=== PATIENT | female | born 1965 | race Caucasian/White ===

== ENCOUNTER 2022-05-17 04:50 | Inpatient (IN) | payer SELFPAY ==
[~2022-05-17] VITALS: Ht 167.6 cm; Wt 63.5 kg
[~2022-05-17 04:50] MED LIST: CORDROL20 MG PO; MOTRIN800 MG PO; MULTIVITAMINS1 EAC5 PO; NAPROXEN500 MG PO; NKHM; OMEPRAZOLE40 MG PO; PERCOCET 325 MG1 TA2; PRILOSEC20 M1 PO; PRILOSEC40 MG PO; PROVERA10 MG PO; VITAMIN E400 UNI3 PO; ZITHROMAX250 MG PO
[2022-05-17 04:56] VITALS: BP 125/60
[2022-05-17 06:02] LABS: BASO % 0.3 % (0.0-1.0); EOS % 0.1 % (1.0-4.0); HEMATOCRIT 41.2 % (37.0-47.0); LYMPH # 1.3 10*3/uL (1.3-4.4); LYMPH % 17.1 % (27.0-41.0); MEAN CELL VOLUME 88.2 fl (81.0-99.0); MEAN PLATELET VOLUME 9.7 fl (9.6-12.3); MONO # 0.3 10*3/uL (0.1-1.0); MONO % 3.5 % (3.0-9.0); NEUT # 5.9 10*3/uL (2.3-7.9); NEUT % 78.7 % (47.0-73.0); PLATELET COUNT AUTOMATED 323 10*3/uL (130-400); RED BLOOD COUNT 4.67 10*6/uL (4.10-5.10); RED CELL DISTRI WIDTH 12.9 % (0-14.5); WHITE BLOOD COUNT 7.5 10*3/uL (4.8-10.8)
[2022-05-17 06:20] LABS: ALKALINE PHOSPHATASE 89 U/L (46-116); BUN < 5 mg/dl (9-23); CHLORIDE 103 mmol/L (98-107); POTASSIUM 3.6 mmol/L (3.4-5.1); SGPT/ALT 19 U/L (10-49); TOTAL PROTEIN 6.6 gm/dL (6.0-8.0)
[2022-05-17 10:02] VITALS: BP 127/63
== END 2022-05-17 14:07 | disposition home or self-care (01) | DRG 313 ==
LOC: ED 04:50 → EDHOLD 09:47 → 4E 10:33
PROVIDERS: Emergency Medicine; ADMIT Internal Medicine; ATTEND Internal Medicine
DX: R07.9 Chest pain, unspecified (principal); E87.1 Hypo-osmolality and hyponatremia; E44.1 Mild protein-calorie malnutrition; F17.210 Nicotine dependence, cigarettes, uncomplicated; R73.9 Hyperglycemia, unspecified; K21.9 Gastro-esophageal reflux disease without esophagitis; Z98.891 History of uterine scar from previous surgery; Z79.82 Long term (current) use of aspirin; Z79.899 Other long term (current) drug therapy; Z71.6 Tobacco abuse counseling; Z68.22 Body mass index [BMI] 22.0-22.9, adult

== ENCOUNTER 2022-05-31 11:37 | Inpatient (IN) | payer SELFPAY ==
[~2022-05-31] VITALS: Ht 154.9 cm; Wt 63.5 kg
[2022-05-31 11:52] VITALS: BP 126/73
[2022-05-31 12:19] LABS: BASO % 0.4 % (0.0-1.0); EOS % 0.4 % (1.0-4.0); HEMATOCRIT 41.1 % (37.0-47.0); LYMPH # 1.2 10*3/uL (1.3-4.4); LYMPH % 14.7 % (27.0-41.0); MEAN CELL VOLUME 90.9 fl (81.0-99.0); MEAN CORPUSCULAR HGB 30.5 pg (27.0-31.0); MEAN CORPUSCULAR HGB CONC 33.6 g/dl (33.0-37.0); MEAN PLATELET VOLUME 9.8 fl (9.6-12.3); MONO # 0.4 10*3/uL (0.1-1.0); MONO % 4.8 % (3.0-9.0); NEUT # 6.5 10*3/uL (2.3-7.9); NEUT % 79.5 % (47.0-73.0); PLATELET COUNT AUTOMATED 310 10*3/uL (130-400); RED BLOOD COUNT 4.52 10*6/uL (4.10-5.10); WHITE BLOOD COUNT 8.1 10*3/uL (4.8-10.8)
[2022-05-31 12:30] LABS: ACT PARTIAL THROMBO TIME 27.8 SECONDS (20.0-32.1)
[2022-05-31 12:38] LABS: ALKALINE PHOSPHATASE 84 U/L (46-116); BUN 6 mg/dl (9-23); CHLORIDE 102 mmol/L (98-107); LIPASE 33 U/L (12-53); POTASSIUM 3.1 mmol/L (3.4-5.1); SGPT/ALT 14 U/L (10-49); TOTAL PROTEIN 6.6 gm/dL (6.0-8.0)
[2022-05-31 14:00] VITALS: BP 113/42
[2022-05-31 15:00] VITALS: BP 140/82
[2022-05-31 20:30] VITALS: BP 108/71
[2022-06-01] VITALS: BP 112/54
[2022-06-01 06:57] LABS: BASO # 0.1 10*3/uL (0.0-0.1); BASO % 0.9 % (0.0-1.0); EOS # 0.1 10*3/uL (0.0-0.4); EOS % 1.4 % (1.0-4.0); HEMATOCRIT 43.1 % (37.0-47.0); LYMPH % 34.9 % (27.0-41.0); MEAN CELL VOLUME 92.7 fl (81.0-99.0); MEAN CORPUSCULAR HGB 29.5 pg (27.0-31.0); MEAN CORPUSCULAR HGB CONC 31.8 g/dl (33.0-37.0); MONO # 0.5 10*3/uL (0.1-1.0); MONO % 9.4 % (3.0-9.0); NEUT % 53.1 % (47.0-73.0); PLATELET COUNT AUTOMATED 309 10*3/uL (130-400); RED BLOOD COUNT 4.65 10*6/uL (4.10-5.10); RED CELL DISTRI WIDTH 13.2 % (0-14.5); WHITE BLOOD COUNT 5.7 10*3/uL (4.8-10.8)
[2022-06-01 07:09] LABS: BUN 8 mg/dl (9-23); CHLORIDE 107 mmol/L (98-107); CHOLESTEROL 213 mg/dL (<200); FREE T4 1.08 ng/dl (0.89-1.76); LDL CHOLESTEROL 135 mg/dL (9-159); THYROID STIM HORMONE (HS) 2.596 uIU/ml (0.550-4.780); TRIGLYCERIDES 143 mg/dl (<150)
[2022-06-01 08:00] VITALS: BP 108/66; BP 159/65
[2022-06-01 08:06] LABS: VITAMIN D, 25-HYDROXY 49.3 ng/mL (30-100)
[2022-06-01 12:00] VITALS: BP 117/82
[2022-06-01 16:00] VITALS: BP 107/67
[2022-06-01 20:00] VITALS: BP 119/65
[2022-06-02] VITALS: BP 108/62
[2022-06-02 08:00] VITALS: BP 129/77
[2022-06-02 12:00] VITALS: BP 117/82
[2022-06-02 16:00] VITALS: BP 135/75
[2022-06-02 20:00] VITALS: BP 119/60
[2022-06-03] VITALS: BP 108/51
[2022-06-03 06:27] LABS: BASO # 0.1 10*3/uL (0.0-0.1); BASO % 0.8 % (0.0-1.0); EOS # 0.1 10*3/uL (0.0-0.4); EOS % 1.2 % (1.0-4.0); HEMATOCRIT 45.9 % (37.0-47.0); LYMPH # 2.1 10*3/uL (1.3-4.4); LYMPH % 31.6 % (27.0-41.0); MEAN CORPUSCULAR HGB 29.5 pg (27.0-31.0); MONO # 0.7 10*3/uL (0.1-1.0); MONO % 10.3 % (3.0-9.0); NEUT # 3.7 10*3/uL (2.3-7.9); NEUT % 55.8 % (47.0-73.0); PLATELET COUNT AUTOMATED 316 10*3/uL (130-400); RED BLOOD COUNT 4.99 10*6/uL (4.10-5.10); RED CELL DISTRI WIDTH 13.1 % (0-14.5); WHITE BLOOD COUNT 6.6 10*3/uL (4.8-10.8)
[2022-06-03 07:12] LABS: BUN 9 mg/dl (9-23); CHLORIDE 100 mmol/L (98-107); POTASSIUM 3.4 mmol/L (3.4-5.1)
[2022-06-03 08:00] VITALS: BP 129/73
[2022-06-03 12:00] VITALS: BP 126/72
[2022-06-03] MEDS ORDERED: ATIVAN0.5 MG PO (15:08)
[2022-06-03 16:00] VITALS: BP 106/50; BP 130/69
== END 2022-06-03 16:50 | disposition home or self-care (01) | DRG 880 ==
LOC: ED 11:37 → EDHOLD 14:06 → 4E 14:06
PROVIDERS: Emergency Medicine; Student in an Organized Health Care Education/Training Program; ADMIT Internal Medicine; ATTEND Internal Medicine
PROC: 4A02XM4 Measurement of Cardiac Total Activity, External Approach (ICD-10-PCS; principal; 2022-06-03)
DX: F41.9 Anxiety disorder, unspecified (principal); E44.1 Mild protein-calorie malnutrition; K21.9 Gastro-esophageal reflux disease without esophagitis; E87.6 Hypokalemia; F17.210 Nicotine dependence, cigarettes, uncomplicated; E78.1 Pure hyperglyceridemia; R00.1 Bradycardia, unspecified; E78.5 Hyperlipidemia, unspecified; I07.1 Rheumatic tricuspid insufficiency; Z82.49 Family history of ischemic heart disease and other diseases of the circulatory system; Z71.6 Tobacco abuse counseling; Z98.891 History of uterine scar from previous surgery; Z68.26 Body mass index [BMI] 26.0-26.9, adult

== ENCOUNTER → 2023-05-22 | Outpatient (CLI) | payer OTHER ==
[~2023-05-22] MED LIST changes: +ATIVAN0.5 MG PO
== END | disposition home or self-care (01) ==
LOC: CT 09:58
PROVIDERS: ATTEND Physician Assistant
DX: J43.2 Centrilobular emphysema (principal); R91.8 Other nonspecific abnormal finding of lung field; F17.210 Nicotine dependence, cigarettes, uncomplicated

== ENCOUNTER 2024-08-27 07:47 | Emergency (ER) | payer SELFPAY ==
[~2024-08-27] VITALS: Ht 154.9 cm; Wt 61.7 kg
[2024-08-27] MEDS ORDERED: LEVOFLOXACIN750 M2 PO (10:50)
[2024-08-27] MEDS ORDERED: PREDNISONE20 M1 PO (10:50)
[2024-08-27] MEDS ORDERED: VENT7GM INH (11:12)
== END 2024-08-27 10:56 | disposition home or self-care (01) ==
LOC: ED 07:47
DX: J32.9 Chronic sinusitis, unspecified (principal); J40 Bronchitis, not specified as acute or chronic; F17.210 Nicotine dependence, cigarettes, uncomplicated; K21.9 Gastro-esophageal reflux disease without esophagitis; F41.9 Anxiety disorder, unspecified; Z79.899 Other long term (current) drug therapy; Z98.890 Other specified postprocedural states